=== PATIENT | female | born 1970 | race Caucasian/White ===

== ENCOUNTER 2017-09-22 11:24 | Outpatient (CLI) | payer BC ==
--- NOTE | 2017-09-22 12:30 | MMO ---
BILAT ERA MAMMOGRAMS: DATE: 09/22/17 HISTORY: Screening mammography. COMPARISON: 08/04/15. FINDINGS: Heterogeneously dense fibroglandular tissue is again demonstrated. Metallic marker in the left breas t indicates region of prior biopsy. There is no dominant mass or suspicious calcifications. The study was evaluated with the assistance of computer-aided detection. IMPRESSION: BIRADS 2: Benign Finding(s) Suggest routine follow-up. POS: ZEYAD
== END 2017-09-22 11:25 | disposition home or self-care (01) ==
LOC: MAMMO 11:24
PROVIDERS: ATTEND Obstetrics & Gynecology
DX: Z12.31 Encounter for screening mammogram for malignant neoplasm of breast (principal)
CPT/HCPCS: 77067; G0202

== ENCOUNTER 2017-10-26 16:15 | Inpatient (IN) | payer BC ==
[2017-10-26 16:13] VITALS: BMI 26.4
--- NOTE | 2017-10-26 20:35 | HP ---
HISTORY OF PRESENT ILLNESS: Ms. Mclaughlin is a 47-year-old white female who had been noticing some low er abdominal discomfort. She initially saw Dr. Lyric Gutiérrez for screening colonoscopy due to this, and colonoscopy was negative, but because of the back pain and abdominal pain, she had CT scan that s howed her to have a uterine fibroid that was approximately 10-12 cm in size on the fundus. The last known measurement sonographically of the fibroid was 6 cm in 2014. She denies any intermenstrual ble eding, but does have painful periods when she is on her menstrual cycle. PAST MEDICAL HISTORY: Otherwise, negative. PAST SURGICAL HISTORY: Tonsillectomy, adenoidectomy. 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 As noted, a normal c olonoscopy and EGD in 08/2017. CURRENT MEDICATIONS: Escitalopram 10 mg daily, and multivitamins. ALLERGIES: She has no known drug allergies. PHYSICAL EXAMINATION: VITAL SIGNS: Her blood pressure is 114/70, pulse 74, height is 65 inches, weight 158 with a BMI of 2 6. HEENT: Within normal limits. CHEST: Clear to auscultation. HEART: Regular rate and rhythm. S1, S2 heart sounds, no murmurs, rubs or gallops. ABDOMEN: Soft, nontender, can feel palpable mass, approximately 14 weeks' size in the lower abdomen. PELVIC: Vulva and vagina had no lesions. Cervix had no lesions. Uterus 14 weeks size with fundal f ibroid mostly on the right side, has consistent with CAT scan and prior ultrasound. Adnexa were nont tory with no masses. ASSESSMENT: A 47-year-old white female with 14-16 weeks uterine fibroid symptomatic with pelvic disc omfort and pain. PLAN: Proceed with robotic total laparoscopic hysterectomy with EXCite removal and bag removal on mo rcellation of the fibroid excorporally, plan for ovarian preservation, with risk for salpingect omies. Risks and benefits of the procedure are discussed in detail. She is set for surgery on 10/30.
[2017-10-30] MEDS ORDERED: CEFAZOLIN/Water 2 GM/20 ML SYRINGE ONE (10:27)
[2017-10-30] MEDS ORDERED: Scopolamine 1.5 mg/72 hour Patch ONE (11:53)
[2017-10-30] MEDS ORDERED: Bupivacaine/Epinephrine 0.25% 30 ML VIAL ONE (13:13)
[2017-10-30] MEDS ORDERED: Midazolam HCl 2 mg/2 ml Vial ONE (13:18)
[2017-10-30] MEDS ORDERED: HYDROmorphone 0.5 MG/0.5 ML SYRINGE ONE (13:20)
[2017-10-30] MEDS ORDERED: Famotidine/PF 20 mg/2ml Vial ONE (13:20)
[2017-10-30] MEDS ORDERED: Fentanyl 250 MCG/5 ML VIAL ONE (13:33)
[2017-10-30] MEDS ORDERED: Promethazine HCl 25 MG/ML VIAL ONE (14:31)
[2017-10-30] MEDS ORDERED: Morphine Sulfate 2 MG/ML SYRINGE SLOW IVP PRN (14:35)
[2017-10-30] MEDS ORDERED: HYDROmorphone 2 MG/ML VIAL SLOW IVP PRN (14:35)
[2017-10-30] MEDS ORDERED: Promethazine HCl 25 MG/ML VIAL SLOW IVP PRN (14:35)
[2017-10-30] MEDS ORDERED: Ondansetron HCl/PF 4 MG/2 ML Vial IVP PRN ×2 (14:35→16:11)
[2017-10-30] MEDS ORDERED: Ketorolac Tromethamine 30 MG/ML VIAL IVP PRN (14:35)
[2017-10-30] MEDS ORDERED: Promethazine HCl 25 MG/ML VIAL IM PRN ×2 (14:35→16:11)
[2017-10-30] MEDS ORDERED: Meperidine HCl/PF 25 MG/ML VIAL SLOW IVP PRN (14:35)
[2017-10-30] MEDS ORDERED: Vecuronium 10 MG VIAL ONE (15:36)
[2017-10-30] MEDS ORDERED: ePHEDrine/0.9% NaCl/PF SYRINGE 50 mg/10 ml ONE (15:36)
[2017-10-30] MEDS ORDERED: Lidocaine 1% PF 5 ML VIAL ONE (15:36)
[2017-10-30] MEDS ORDERED: Propofol 200 MG/20 ML VIAL ONE (15:36)
[2017-10-30] MEDS ORDERED: Metoclopramide HCl 10 MG/2 ML VIAL ONE (15:36)
[2017-10-30] MEDS ORDERED: Glycopyrrolate 0.2 MG/ML 5 ML SYRINGE ONE (15:36)
[2017-10-30] MEDS ORDERED: Ketorolac Tromethamine 30 MG/ML VIAL ONE (15:36)
[2017-10-30] MEDS ORDERED: PHENYLEPHRINE-NS 100 MCG/ML 10 ML SYRINGE ONE (15:36)
[2017-10-30] MEDS ORDERED: Ondansetron HCl/PF 4 MG/2 ML Vial ONE (15:36)
[2017-10-30] MEDS ORDERED: Dexamethasone 20 MG/5 ML VIAL ONE (15:36)
[2017-10-30] MEDS ORDERED: Simethicone Chewable 80 MG TAB PO PRN (16:11)
[2017-10-30] MEDS ORDERED: Bisacodyl 10 MG SUPP PR PRN (16:11)
[2017-10-30] MEDS ORDERED: traMADol HCl 50 MG TAB PO PRN (16:11)
[2017-10-30] MEDS ORDERED: diphenhydrAMINE 25 MG CAP PO PRN (16:11)
[2017-10-30] MEDS ORDERED: Zolpidem Tartrate 5 MG TAB PO PRN (16:11)
[2017-10-30] MEDS ORDERED: Morphine 4 MG/ML VIAL SLOW IVP PRN (17:00)
[2017-10-30] MEDS ORDERED: Fentanyl 100 MCG/2 ML VIAL ONE (17:01)
[2017-10-30] MEDS ORDERED: Acetaminophen 1,000 MG in Premix Bag 1 BAG IVPB SCH (18:00)
[2017-10-30] MEDS ORDERED: Ketorolac Tromethamine 30 MG/ML VIAL IVP SCH (18:00)
[2017-10-30] MEDS: Acetaminophen 1,000 MG in Premix Bag 1 BAG IVPB SCH (20:16)
[2017-10-30] MEDS: Ketorolac Tromethamine 30 MG/ML VIAL IVP SCH (20:59)
[2017-10-30] MEDS ORDERED: Ibuprofen 800 MG TAB PO SCH (21:00)
[2017-10-30] MEDS: Lactated Ringer's 1,000 ML IV SCH (21:06)
[2017-10-31] MEDS: Acetaminophen 1,000 MG in Premix Bag 1 BAG IVPB SCH ×2 (02:05→09:16)
[2017-10-31] MEDS: Ketorolac Tromethamine 30 MG/ML VIAL IVP SCH ×2 (03:17→09:16)
[2017-10-31] MEDS: traMADol HCl 50 MG TAB PO PRN ×2 (06:36→12:17)
[2017-10-31 06:54] LABS: Mean Platelet Volume 6.9 fL (7.4-10.4); Red Blood Cell (RBC) Count 3.94 mill/uL (4.20-5.40); White Blood Cell (WBC) Count 12.3 thou/uL (4.8-10.8)
[2017-10-31] MEDS: Lactated Ringer's 1,000 ML IV SCH ×2 (07:27→09:16)
--- NOTE | 2017-10-31 07:28 | OP ---
DATE OF SURGERY: 10/30/2017 PREOPERATIVE DIAGNOSES: 1. A 47-year-old white female with symptomatic 16-week uterine fibroids. 2. Pelvic pain noted with recent increase in growth of the previous noted fibroids. POSTOPERATIVE DIAGNOSES: 1. A 47-year-old white female with symptomatic 16-week uterine fibroids. 2. Pelvic pain noted with recent increase in growth of the previous noted fibroids. PROCEDURES PERFORMED: 1. Robotic total laparoscopic hysterectomy with bilateral salpingectomy. 2. Uterine fibroid removed via extracorporeal C incision tissue extraction technique. SURGEON: Elizabeth Dickinson M.D. HAND SOLE SEWER SURGEON: Honorio Meza M.D. ANESTHESIA: General endotracheal. ESTIMATED BLOOD LOSS: 50 mL. COMPLICATIONS: None. COUNTS: Correct x2. ANTIBIOTICS: Two grams Ancef leather seasoner to the OR. FINDINGS: 1. Bilateral fallopian tubes and ovaries were normal in appearance. 2. Enlarged approximately 16-week size uterus with a large 12-14 cm right fundal intramural fibroid noted. 3. Clear urine present in Doe catheter post-procedure with also bilateral ureteral peristalsis vis ualized post hysterectomy. DISPOSITION: To the recovery room stable. DESCRIPTION OF OPERATIVE PROCEDURE: The patient previously received informed consent in regards to yunier salas. She was taken back to the operating room where she received a general endotracheal anestheti c agent without complications. She was placed in dorsal lithotomy position with use of Julio stirrup s and prepped and draped in usual sterile fashion. A Doe catheter was placed during the prep proce ss. A sidearm speculum was placed in the vagina. The anterior lip of cervix was grasped with single tooth tenaculum. Uterus sounded to 12 cm. A size 12 cm OH uterine manipulator 4.0 cm cervical cu p was then placed. The tenaculum and speculum were removed. The attention was then turned to the ab domen where perspective trocar sites were infiltrated with 0.5% Marcaine with epinephrine. A 2 cm sk in incision was made superior to the umbilicus approximately 2 fingerbreadths and Veress needle was t hen placed into the peritoneal cavity. Patient pressure was noted to be less than 5 mm and the abdom en was insufflated to patient pressure of 15, approximately 4 liters carbon dioxide gas. A size 12 m m trocar was then placed and then the robotic laparoscope was introduced through the trocar sleeve co nfirming proper entry. The trocar sleeve was then utilized to extend the fascial incision with a orquidea de cutting on the trocar approximately another 0.5 cm on each side expanding the fascial defect to ap proximately 2.5 cm. This allowed placement of the Michael O retractor and then the Gelpoint cover. T he trocar for the laparoscope had been previously placed through the Gelpoint prior to attaching this . The abdomen was then insufflated and then additional bilateral 8 mm robotic trocars were placed in bilateral lower quadrants with 11 mm right upper quadrant port. The pelvis was inspected with the previously mentioned findings. My assistant cook grasped the fallopian tube at the fimbria on the left side. Defect was made at the mesosalpinx with monopolar scissors and then the left fallopian tube was then incised and mesosalpinx then removed through the right upper q uadrant trocar site. The left uteroovarian ligament was coagulated with bipolar fenestrated cautery, transected. Serial coagulation close to the left side of the uterus was carried out with the bipola r fenestrated cautery until the left round ligament was reached. It was coagulated and transected an d the anterior leaf of the broad ligament was entered. The vesicouterine peritoneum was then incised in a layering technique dissecting the bladder atraumatically past the cervical vaginal angle, which was demarcated by the cup indentation from the OH uterine manipulator. The uterine vessels were t hen skeletonized and the uterine vessels were coagulated in internal cervical os area. The right fallopian tube was then grasped at the fimbria by my assistant cook. Again, the fallopian tube was incised and the mesosalpinx and then removed right upper quadrant trocar site. The right ovary w as somewhat adhesed to the posterior fundus area over the fibroid. This was incised with blunt disse ction and sharp dissection releasing the right adnexa. The right uteroovarian ligament was then coag ulated and transected and then serial layering of the broad ligament hugging close to uterine fibroid , was carried out until right round ligament was reached. It was coagulated and transected. Again, the vesicouterine peritoneum incision was incised developing again the anterior colpotomy and droppin g the bladder past the cervical vaginal angle. The uterine vessels again were skeletonized and coagu lated internal cervical os region. The uterus was then flipped forward and then exposing the posteri or aspect of the uterus and over the posterior cervical line, which was visualized by the demarcation of the OH cervical cup. The posterior colpotomy was then carried out from 6 to 3 and 6 to 9 o'sha ck position with monopolar scissor cautery. Then the anterior colpotomy was made from 12 to 3 and 12 to 9 in similar fashion taking heed to coagulate the remainder of the uterine vessels at 3 and 9 o'c lock position. The uterus and cervix were then detached from the vaginal cuff line. We then detache d the OH uterine manipulator freeing the large uterine specimen in the pelvic floor. Pneumo was th en created with a moistened sponge in the vaginal vault. The vaginal cuff was then closed with a Str atafix sutures starting at right vaginal angle to the left vaginal angle and then back to the midline , full thickness closure with good hemostasis and approximation was confirmed. The pelvis irrigated and suctioned. Again, hemostasis on the pedicle sites were confirmed. The urine was noted to be alida ar and bilateral ureteral peristalsis were visualized at this time. The robot was then undocked. Th e laparoscope was removed and the Gelpoint trocar was opened. This allowed for placement of a large ACES tissue containment bag that had been folded in accordion technique and tied with a suture into t he lower pelvis. The Gelpoint cap was then reattached and pneumoperitoneum was then recreated and th e laparoscope was then reintroduced. Once, we had the bag oriented in the pelvis appropriately the u terine specimen was placed nearby the opening and then the suture holding the bag in the accordion fa shion was visually cut with the Endoshears. This allowed for opening of the Endobag and then we were able to place the tissue specimen, the fibroid and uterus within the bag. The brim of the bag was t hen noted to be secure and was manipulated so the specimen fell deep within the bag. We then grasped the tethered cord to the bag and pulled this up through the Gelpoint cap which had now again been op ened delivering the tissue specimen inside the ACES tissue containment bag. An additional Michael O r etractor was placed inside the bag to prevent cutting of the bag during the morcellation process. The cervix was grasped with Mikie clamp. A C-incision technique was then utilized continuously to mo rcellate the specimen. The tissue was grasped with Syeda clamps and Mikie thyroid clamps and towel clamps. The fibroid was noted to be calcified and this led us to have to do some individually morcel lating the tissue, but continued processing of this yielded complete removal of the specimen and cont ained with inside the specimen bag. The bag was then removed and noted to be intact. The Michael O r etractors were then removed. Hemostasis was noted. The fascial defect was closed on the mid suprapu bic abdomen with a running continuous #0 Vicryl suture securing fascial closure. The subcuticular st itches were then carried out to close the trocar defect sites with 4-0 Monocryl running subcuticular fashion. Hemostasis was confirmed. Dermabond was placed over the incision site, vaginal vault was n oted to be hemostatic. The patient was awakened from anesthesia and transferred to the recovery room in stable condition.
[2017-10-31] MEDS ORDERED: Ibuprofen 800 MG TAB PO SCH (09:45)
[2017-10-31 12:09] VITALS: BP 115/69; TEMP 97.9
--- NOTE | 2017-11-01 13:49 | DIS ---
DATE OF ADMISSION: 10/30/2017 DATE OF DISCHARGE: 10/31/2017 DIAGNOSIS: Symptomatic 16-week uterine fibroids with pelvic pain secondary to uterine fibroids. PROCEDURES PERFORMED: 1. Robotic total laparoscopic hysterectomy with bilateral salpingectomies. 2. Uterine fibroids removed via extracorporeal C-incision tissue extraction technique. SUMMARY OF HOSPITAL COURSE: Ms. Mclaughlin is a 47-year-old white female, who has been noticing increas ing pelvic pain recently and was noted to have significant enlargement of the previously documented u terine fibroid. Due to this finding, she desired definitive surgical therapy and underwent a robotic TLH with extracorporeal tissue extraction technique on 10/30/2017. Postoperatively, the patient did well. She had stable vital signs throughout, hemodynamically stable and began ambulating, voiding w ithout difficulty, and tolerating a regular diet on postop day #1. She was discharged late morning o f postop day #1 with discharge medications of tramadol 50 mg q.6 hours p.r.n. pain and [id number] er ibuprofen as directed. She has a scheduled followup in 2 and 6 weeks postoperatively.
[2017-11-05] MEDS ORDERED: Ibuprofen 800 MG TAB PO SCH (09:00)
== END 2017-10-31 12:25 | disposition home or self-care (01) | DRG 743 ==
LOC: SURG A 10-30 10:14 → 3SE 10-30 18:01
PROVIDERS: ADMIT Obstetrics & Gynecology; ATTEND Obstetrics & Gynecology
PROC: 0UT94ZZ Resection of Uterus, Percutaneous Endoscopic Approach (ICD-10-PCS; principal; 2017-10-30)
PROC: 0UTC4ZZ Resection of Cervix, Percutaneous Endoscopic Approach (ICD-10-PCS; 2017-10-30)
PROC: 0UT74ZZ Resection of Bilateral Fallopian Tubes, Percutaneous Endoscopic Approach (ICD-10-PCS; 2017-10-30)
PROC: 8E0W4CZ Robotic Assisted Procedure of Trunk Region, Percutaneous Endoscopic Approach (ICD-10-PCS; 2017-10-30)
DX: D25.1 Intramural leiomyoma of uterus (principal); N94.6 Dysmenorrhea, unspecified
CPT/HCPCS: 36415; 85027; 88302; 88307; A4216; J0131; J1100; J1170; J1885; J2001; J2250; J2405; J2550; J2704; J2765; J3010; S0028

== ENCOUNTER → 2017-10-26 | Outpatient (CLI) | payer BC ==
[2017-10-26 16:58] LABS: Mean Platelet Volume 6.5 fL (7.4-10.4); Red Blood Cell (RBC) Count 4.49 mill/uL (4.20-5.40); White Blood Cell (WBC) Count 9.3 thou/uL (4.8-10.8)
== END ==
LOC: LABBT 09:00
PROVIDERS: ATTEND Obstetrics & Gynecology
DX: Z01.812 Encounter for preprocedural laboratory examination (principal); R10.2 Pelvic and perineal pain; D21.9 Benign neoplasm of connective and other soft tissue, unspecified
CPT/HCPCS: 84703; 85027; 86850; 86900; 86901

== ENCOUNTER 2018-11-27 08:27 | Outpatient (CLI) | payer BC | END 2018-11-27 08:28 | disposition home or self-care (01) | LOC: BICMAMMO 08:27 | PROVIDERS: ATTEND Family Medicine | DX: Z12.31 Encounter for screening mammogram for malignant neoplasm of breast (principal); N63.20 Unspecified lump in the left breast, unspecified quadrant; N63.10 Unspecified lump in the right breast, unspecified quadrant; Z98.890 Other specified postprocedural states | CPT/HCPCS: 77063; 77067 ==